=== PATIENT | female | born 1960 | race American Indian/Alaskan Native ===

== ENCOUNTER 2016-12-18 09:21 | Emergency (ER) | payer MEDICAID ==
[2016-12-18 13:45] LABS: BUN/Creatinine Ratio 13.21; Calcium 9.8 mg/dL (8.4-10.2); Chloride 98.3 mmol/L (98-107)
--- NOTE | 2016-12-18 14:38 | XRay Report ---
RIGHT KNEE, 3 views: History: Right knee pain. A moderate joint effusion extends to the suprapatellar bursa on the lateral image. Bone mineralization is normal. No acute osseous findings or joint pathology is identified. IMPRESSION: Joint effusion. No bony abnormality is appreciated. If internal derangement is suspected, MRI could be obtained.
--- NOTE | 2016-12-18 15:29 | Emergency Department Report ---
ED Lower Extremity HPI - General Chief Complaint: Extremity Injury, Lower Stated Complaint: RT LEG SWELLING /PAIN/DIABETIC Time Seen by Provider: 12/18/16 14:10 Source: patient Mode of arrival: Wheelchair Limitations: No Limitations - History of Present Illness Initial Comments: 56-year-old female past medical history hypertension diabetes presents with complaint of 4 days of right lower extremity pain and mild swelling. Patient states that she has pain in her right knee region radiating down her right leg. Denies any direct trauma and no falls. Denies any fevers chills no significant calf swelling. Patient denies any history of PE or DVT. Patient is able to walk but with minor limp due to pain in the right mid leg region near the right knee. MD Complaint: other (right leg pain) Onset/Timin -: days(s) Injury: Knee: Right Place: home Severity: moderate Severity scale (0 -10): 6 Improves With: immobilization Worsens With: weight bearing, movement Associated Symptoms: snap/pop sensation, able to partially bear weight - Related Data Previous Rx's Medication Instructions Recorded Last Taken Type HYDROcodone/APAP 5-325 [[place] 1 each PO Q6HR PRN #12 tablet 12/18/16 Unknown Rx 5/325] Allergies Allergy/AdvReac Type Severity Reaction Status Date / Time Iodinated Contrast Media - AdvReac Hives Verified 12/18/16 09:30 IV Dye prochlorperazine AdvReac NERVOUS / Verified 12/18/16 09:30 [From Compazine] JITTERY / HIVES prochlorperazine edisylate AdvReac NERVOUS / Verified 12/18/16 09:30 [From Compazine] JITTERY / HIVES prochlorperazine maleate AdvReac NERVOUS / Verified 12/18/16 09:30 [From Compazine] JITTERY / HIVES ED Review of Systems ROS: Stated complaint: RT LEG SWELLING /PAIN/DIABETIC Other details as noted in HPI Constitutional: denies: chills, fever Eyes: denies: eye pain, eye discharge, vision change ENT: denies: ear pain, throat pain Respiratory: denies: cough, shortness of breath, wheezing Cardiovascular: denies: chest pain, palpitations Endocrine: no symptoms reported Gastrointestinal: denies: abdominal pain, nausea, diarrhea Genitourinary: denies: urgency, dysuria, discharge Musculoskeletal: as per HPI. denies: back pain, joint swelling, arthralgia Skin: denies: rash, lesions Neurological: denies: headache, weakness, paresthesias Psychiatric: denies: anxiety, depression Hematological/Lymphatic: denies: easy bleeding, easy bruising ED Past Medical Hx - Past Medical History Hx Hypertension: Yes Hx Diabetes: Yes (TYPE 2) Hx Renal Disease: Yes (STAGE 4) Hx Kidney Stones: Yes Hx Asthma: Yes - Surgical History Additional Surgical History: TUBAL LIGATION. CYST REMOVED RIGHT OVARY. HYSTERECTOMY - Social History Smoking Status: Never Smoker Substance Use Type: None - Medications Home Medications: Home Medications Medication Instructions Recorded Confirmed Last Taken Type HYDROcodone/APAP 5-325 [[place] 1 each PO Q6HR PRN #12 tablet 12/18/16 Unknown Rx 5/325] ED Physical Exam - General Limitations: No Limitations General appearance: alert, in no apparent distress - Head Head exam: Present: atraumatic, normocephalic - Eye Eye exam: Present: normal appearance, PERRL, EOMI - ENT ENT exam: Present: mucous membranes moist - Neck Neck exam: Present: normal inspection - Respiratory Respiratory exam: Present: normal lung sounds bilaterally. Absent: respiratory distress - Cardiovascular Cardiovascular Exam: Present: regular rate, normal rhythm. Absent: systolic murmur, diastolic murmur, rubs, gallop - GI/Abdominal GI/Abdominal exam: Present: soft, normal bowel sounds - Extremities Exam Extremities exam: Present: normal inspection - Expanded Lower Extremity Exam Right Hip exam: Present: normal inspection, full ROM Upper Leg exam: Present: normal inspection, full ROM Knee exam: Present: normal inspection, full ROM, swelling (mild swelling right knee region, range of motion flexion and extension right knee fully intact, negative valgus and varus test stress testing of the knee), effusion Lower Leg exam: Present: normal inspection, full ROM Ankle exam: Present: normal inspection, full ROM (distal plantar and dorsiflexion fully intact against resistance) Foot/Toe exam: Present: normal inspection, full ROM Neuro vascular tendon exam: Present: no vascular compromise Gait: Positive: antalgic 1 - Mild pain in this region on palpation very mild swelling. - Back Exam Back exam: Present: normal inspection, full ROM - Neurological Exam Neurological exam: Present: alert, oriented X3, CN II-XII intact, abnormal gait (slightly antalgic gait) - Psychiatric Psychiatric exam: Present: normal affect, normal mood - Skin Skin exam: Present: warm, dry, intact, normal color. Absent: rash ED Course Vital Signs 12/18/16 12/18/16 09:34 15:58 Temperature 98.7 F Pulse Rate 81 78 Respiratory 20 16 Rate Blood Pressure 134/75 Blood Pressure 124/88 [Left] O2 Sat by Pulse 100 98 Oximetry ED Lower Extremity MDM - Lab Data Result diagrams: 12/18/16 13:08 - Medical Decision Making A/P: Right knee pain, right knee effusion, chronic kidney disease 1-patient has creatinine of 2.8, GFR is 21. I called the patient's careers counsellor Dr. Iesha Munoz at [phone]. I confirmed with Dr. Munoz the patient's creatinine is at baseline, Dr. Munoz states that she has follow- up with the patient tomorrow for a regularly scheduled checkup 2-right side knee immobilizer. distal DP and PT pulses strong to palpation and sensation RLE fully intact from knee to foot, ROM active and passive intact grossly on exam 3-[place] when necessary for pain 4-follow-up with orthopedics 5-discussed with Dr. Jean Critical care attestation.: If time is entered above; I have spent that time in minutes in the direct care of this critically ill patient, excluding procedure time. ED Disposition Clinical Impression: Chronic kidney disease Qualifiers: Chronic kidney disease stage: stage 4 (severe) Qualified Code(s): N18.4 - Chronic kidney disease, stage 4 (severe) Right knee pain Qualifiers: Chronicity: acute Qualified Code(s): M25.561 - Pain in right knee Disposition: DISCHARGED TO HOME OR SELFCARE Is pt being admited?: No Does the pt Need Aspirin: No Condition: Stable Instructions: Chronic Kidney Disease (ED), Arthralgia (ED), Impaired Kidney Function (ED) Prescriptions: HYDROcodone/APAP 5-325 [[place] 5/325] 1 each PO Q6HR PRN #12 tablet PRN Reason: Pain Referrals: IESHA MUNOZ MD [Referring] - 3-5 Days Forms: Work/School Release Form(ED) Time of Disposition: 15:31
[2016-12-18 15:59] VITALS: BP 124/88
[2016-12-18] MEDS: NORCO 5/325 PO ONE (16:11)
== END 2016-12-18 17:07 | disposition home or self-care (01) ==
LOC: ED 09:21
DX: M25.561 Pain in right knee (principal); E11.22 Type 2 diabetes mellitus with diabetic chronic kidney disease; I12.9 Hypertensive chronic kidney disease with stage 1 through stage 4 chronic kidney disease, or unspecified chronic kidney disease; N18.4 Chronic kidney disease, stage 4 (severe); J45.909 Unspecified asthma, uncomplicated
CPT/HCPCS: 36415; 80048; 82962; 99284